=== PATIENT | male | born 1940 | race Caucasian/White ===

== ENCOUNTER 2019-05-06 13:12 | Outpatient (CLI) | payer MEDICARE, SELFPAY ==
--- NOTE | ~2019-05-06 | CT_ITS ---
EXAMINATION: CTA chest DATE: 05/06/2019 14:01 INDICATION: Aortic root dilatation. TECHNIQUE: Computed tomographic angiography (CTA) of the chest was performed with 100 mL Omnipaque-35 0 intravenous contrast. Automated exposure control and iterative reconstruction technique were employ ed. The dose-length product was 588.06 mGy-cm. Maximum intensity projection 3D-reconstructions of the aorta and other arteries were constructed by the technologist on a separate workstation. COMPARISON: Chest CT 05/07/2018 FINDINGS: Calcified bilateral lung nodules and calcified right hilar lymph nodes are consistent with old granulomatous disease. There are widespread peripheral reticular opacities in the lungs with a lo wer lung predominance. No bronchiectasis or honeycombing. No pleural effusion. Cardiomegaly is noted. There are coronary artery calcifications. There is mild right hilar lymphadenopathy, likely reactive . The aorta measures 4.8 cm at the sinuses of Valsalva, 4.0 cm at the sinotubular junction, 4.1 cm in the mid ascending aorta, 3.0 cm at the aortic isthmus, and 3.1 cm in the mid descending aorta. A mary tus bump is noted. There are gallstones in the gallbladder, which is normal in size. There is mild th oracic spondylosis. IMPRESSION: 1. Stable ectasia of ascending aorta. 2. Cardiomegaly. 3. Slightly worsened chronic interstitial lung disease in a pattern of usual interstitial pneumonia ( UIP) versus nonspecific interstitial pneumonia (NSIP). Reviewed, dictated and finalized at location A. CONNECTOR IMPRESSION: 1. Stable ectasia of ascending aorta. 2. Cardiomegaly. 3. Slightly worsened chronic interstitial lung disease in a pattern of usual in terstitial pneumonia (UIP) versus nonspecific interstitial pneumonia (NSIP).
[2019-05-06 13:52] LABS: Estimated Glomerular Filt Rate 45
== END 2019-05-06 13:13 | disposition home or self-care (01) ==
PROVIDERS: PCP Family Medicine; Visit Provider Internal Medicine Cardiovascular Disease
DX: I77.810 Thoracic aortic ectasia (principal); I71.2 Thoracic aortic aneurysm, without rupture; I35.1 Nonrheumatic aortic (valve) insufficiency; I51.7 Cardiomegaly; J84.9 Interstitial pulmonary disease, unspecified
CPT/HCPCS: 36415; 71275; Q9967

== ENCOUNTER → 2020-06-03 05:04 | Outpatient (CLI) | payer MEDICARE, SELFPAY ==
[2020-06-03 19:22] LABS: SARS-CoV-2 RNA PCR Negative
== END ==
PROVIDERS: PCP Family Medicine; Visit Provider Internal Medicine Cardiovascular Disease
DX: Z01.812 Encounter for preprocedural laboratory examination (principal); Z20.822 Contact with and (suspected) exposure to COVID-19
CPT/HCPCS: C9803; U0003; U0005

== ENCOUNTER 2020-10-13 10:47 | Outpatient (CLI) | payer MEDICARE, SELFPAY ==
[2020-10-13] VITALS (7 sets, daily range): BP systolic 126–187; BP diastolic 61–73; PULSE 52–67; RESP 14–20; TEMP 36.3; O2SAT 96–99; BMI 29.9
--- NOTE | 2020-10-13 12:35 | WPDHPUPDATE1 ---
History and Physical Update Update Date/Time: 10/13/20 12:35 History and Physical has been reviewed, including an updated exam of the patient. There are NO changes in the patient's condition. Risks, benefits, and alternatives have been discussed and questions answered. Patient agrees to proceed with procedure.
--- NOTE | 2020-10-13 12:35 | WPDTEECHO ---
[facility] TransEsophageal Echocardiogram Date of procedure: 10/13/20 Procedure Type: Transesophageal echocardiogram Diagnosis: Severe aortic regurgitation, shortness of breath Indications: Severe aortic regurgitation, shortness of breath Image Quality: Acceptable Findings: Brief history present illness: Patient is a pleasant 80-year-old male with a past medical history significant for TYRA on CPAP, CAD status post NSTEMI with 9% proximal LAD stenosis status post 3 x 18 mm drug-eluting stent 2012, ascending aortic aneurysm with aortic regurgitation with worsening shortness of breath decreased activity tolerance with extensive discussions with regarding my recommendation for transesophageal echocardiogram to reassess severity of aortic regurgitation and my recommendations for referral to cardiothoracic surgery as appropriate. With a history of referred for transesophageal echocardiogram for further evaluation for . Procedure in detail: After verbal and written informed consent was obtained the patient risks, benefits, and alternatives explained in detail the patient agreed to proceed with the plan of care as outlined above. The patient was evaluated at bedside in the gastroenterology procedure room. The posterior oropharynx, neck, and jaw angle all within normal limits on examination. Lungs were clear to auscultation. See pre-sedation note for further details The patient was then placed in the appropriate 30 to 45 degree angle supine position at a slight left lateral decubitus position. Patient was monitored throughout the study with telemetry, oxygen saturation, end-tidal CO2 monitoring, blood pressure, heart rate, and respirations. After adequate sedation administered by Anesthesiology was achieved and the oral bite block placed, moderate sedation was administered. After confirmation of adequate moderate sedation, the transesophageal echocardiogram probe was advanced through the oral bite block into the posterior hypopharynx and into the esophagus easily and without complication. Multiple, multiplanar echocardiographic images were obtained in multiple standard re- projections. Pulsed wave, continuous-wave, and color-flow Doppler were utilized in conjunction with this study. At the conclusion of the study, the transesophageal echocardiogram probe was removed easily and without complication. The patient tolerated the procedure well without difficulty. Patient was in sinus rhythm throughout the study. Moderate Sedation/Anesthesia administration: Patient reports no prior problems with sedation/anesthesia. Please see Anesthesiology documentation for details and protocol. There were no other issues or complications and patient tolerated the procedure well. See post-anesthesia documentation. FINDINGS: LEFT VENTRICLE: Mild left ventricular enlargement and left ventricular hypertrophy with paradoxical septal wall motion abnormality and ejection fraction approximately 55% mild hypokinesis in setting of severe aortic regurgitation. RIGHT VENTRICLE: Size and systolic function within normal limits. LEFT ATRIUM: Mild to moderate enlargement RIGHT ATRIUM: Normal size. INTERATRIAL SEPTUM: Interatrial septum is anatomically normal without evidence of shunt with color-flow Doppler. MITRAL VALVE: Mitral valve is anatomically normal with preserved leaflet excursion and mild regurgitation. Mild mitral annular calcification AORTIC VALVE: The aortic valve was an anatomically normal 3 leaflet structure with normal leaflet excursion with severe regurgitation. TRICUSPID VALVE: The tricuspid valve is anatomically normal with normal leaflet excursion with mild regurgitation identified. No mobile elements identified. PULMONIC VALVE: Pulmonic valve was not well visualized, however, trivial regurgitation was identified. LEFT ATRIAL APPENDAGE: Not well visualized, however, visualized portions appear anatomically normal structure without thrombus. Left atri
== END 2020-10-13 15:40 | disposition home or self-care (01) ==
LOC: ANHCARD 10:53
PROVIDERS: PCP Family Medicine; Visit Provider Internal Medicine Cardiovascular Disease
PROC: (CPT 93312; principal; 2020-10-13 12:00)
DX: I35.1 Nonrheumatic aortic (valve) insufficiency (principal); R06.02 Shortness of breath
CPT/HCPCS: 93312; 93320; 93325; J2001; J2704; J7030

== ENCOUNTER 2021-10-24 01:19 | Day surgery (SDC) | payer MEDICARE, SELFPAY ==
[2021-10-20 16:45] VITALS: BMI 31.0
[2021-10-24] VITALS (9 sets, daily range): BP systolic 116–196; BP diastolic 49–68; PULSE 46–64; RESP 12–19; TEMP 36.3–37.2; O2SAT 96–99; BMI 30.8
--- NOTE | 2021-10-24 09:39 | WPDMODSED ---
Moderate Sedation Note-Pt Data Patient Data Allergies Allergy/AdvReac Type Severity Reaction Status Date / Time atorvastatin Allergy Unknown dizzy and Verified 10/24/21 08:45 cough famotidine Allergy Unknown vision Verified 10/24/21 08:45 problems lisinopril Allergy Unknown Unknown Verified 10/24/21 08:45 metoprolol Allergy Unknown Dizziness Verified 10/24/21 08:45 Penicillins Allergy Unknown Skin Verified 10/24/21 08:45 Reaction tamsulosin Allergy Unknown Pt does Verified 10/24/21 08:45 not remember reaction Ieuinwl-BFH-DhS Reductase Allergy Unknown Verified 10/24/21 08:46 Inhibitor Home Medications Medication Instructions Recorded Confirmed Type aspirin 81 mg tablet,delayed 81 mg PO DAILY 04/22/19 10/24/21 History release losartan 25 mg tablet 25 mg PO DAILY 10/13/20 10/24/21 History nitroglycerin 0.4 mg sublingual 0.4 mg sublingual Q5M PRN chest 01/18/21 10/24/21 Rx tablet (Nitrostat) pain #30 tabs ezetimibe 10 mg tablet See Rx Instructions .Route 02/02/21 10/24/21 Rx .COMPLEX #90 tabs clopidogrel 75 mg tablet See Rx Instructions .Route 09/11/21 10/24/21 Rx .COMPLEX #90 tabs Current Medications: Active Medications Sodium Chloride (Normal Saline Iv) 500 mls @ 100 mls/hr IV CONT .Q5H ARLENE Sedation/Anesthesia: No previous sedation/anesthesia problems (including family history). [facility] Past Medical History Medical History CAD (coronary artery disease) Essential (primary) hypertension History of heart attack Hypothyroidism (acquired) Mixed hyperlipidemia Nonrheumatic aortic (valve) insufficiency 8-21 trans esophageal echo severe Obstructive sleep apnea (adult) (pediatric) Surgical History Surgical History H/O hernia repair H/O prostatectomy History of appendectomy Family History Family History Father Diabetes mellitus Acute myocardial infarction, Onset Age: 83 Mother Family history of lymphoma Social History Social History Smoking status: Never smoker Alcohol intake: never Substance use type: does not use Living arrangements: alone Spiritual care concerns: No Mod Sed Physical Exam Physical Exam Pre Procedural Exam: Normal: Airway Hours since solid foods: 10 Hours since liquid intake: 10 Mallampati Classification: class II Internal Medicine - PN: Obj Da Vital Signs Vital Signs: Vital Signs - 24 hr 10/24/21 08:47 Temperature 37.2 C Pulse Rate 59 L Respiratory Rate 16 Blood Pressure 186/55 H Pulse Oximetry 98 Oxygen Delivery Room Air Meds/Results Medications: Active Medications Generic Name Dose Route Start Last Admin Trade Name Freq PRN Reason Stop Dose Admin Sodium Chloride 500 mls @ 100 mls/hr 10/24/21 08:30 Normal Saline Iv IV CONT .Q5H ARLENE ASA Classification/Sedation ASA Classification/Sedation ASA Class: IV Emergent: No Risks: Risks, benefits and alternatives explained and patient/family accepted plan for sedation. Patient re-evaluated immediately prior to sedation.
--- NOTE | 2021-10-24 09:42 | PM.IMHP ---
H&P: HPI History of Present Illness Date/Time: 10/24/21 09:42 Chief Complaint: fatigue Narrative: 81-year-old male with CAD, history of Non ST-elevation [place] status post PCI/stenting of LAD at outside hospital, valvular heart disease -aortic regurgitation, CHF with reduced ejection fraction, hypertension, CKD, TYRA. Patient has been referred by Dr. Estes for right and left heart catheterization prior to aortic valve surgery. echocardiogram from 10/13/2021 reportedly showed moderate LVH, moderate LV enlargement, ejection fraction about 45%; mild MR, moderate severe aortic regurgitation, mildly dilated ascending aorta. CT angiogram from 10/05/2021 reportedly showed sinus of Valsalva 4.6x4.6x 4.6 cm, ST junction 3.8 x 3.9 cm, mid descending aorta 2.8 x 2.8 cm. [facility] Past Medical History Medical History CAD (coronary artery disease) Essential (primary) hypertension History of heart attack Hypothyroidism (acquired) Mixed hyperlipidemia Nonrheumatic aortic (valve) insufficiency 8-21 trans esophageal echo severe Obstructive sleep apnea (adult) (pediatric) Surgical History Surgical History H/O hernia repair H/O prostatectomy History of appendectomy Family History Family History Father Diabetes mellitus Acute myocardial infarction, Onset Age: 83 Mother Family history of lymphoma Social History Social History Smoking status: Never smoker Alcohol intake: never Substance use type: does not use Living arrangements: alone Spiritual care concerns: No Meds Home Medications and Allergies Home Medications Medication Instructions Recorded Confirmed Type aspirin 81 mg tablet,delayed 81 mg PO DAILY 04/22/19 10/24/21 History release losartan 25 mg tablet 25 mg PO DAILY 10/13/20 10/24/21 History nitroglycerin 0.4 mg sublingual 0.4 mg sublingual Q5M PRN chest 01/18/21 10/24/21 Rx tablet (Nitrostat) pain #30 tabs ezetimibe 10 mg tablet See Rx Instructions .Route 02/02/21 10/24/21 Rx .COMPLEX #90 tabs clopidogrel 75 mg tablet See Rx Instructions .Route 09/11/21 10/24/21 Rx .COMPLEX #90 tabs Allergies Allergy/AdvReac Type Severity Reaction Status Date / Time atorvastatin Allergy Unknown dizzy and Verified 10/24/21 08:45 cough famotidine Allergy Unknown vision Verified 10/24/21 08:45 problems lisinopril Allergy Unknown Unknown Verified 10/24/21 08:45 metoprolol Allergy Unknown Dizziness Verified 10/24/21 08:45 Penicillins Allergy Unknown Skin Verified 10/24/21 08:45 Reaction tamsulosin Allergy Unknown Pt does Verified 10/24/21 08:45 not remember reaction Pfzistf-CQG-CjB Reductase Allergy Unknown Verified 10/24/21 08:46 Inhibitor Vital Signs Vital Signs - 24 hr 10/24/21 08:47 Temperature 37.2 C Pulse Rate 59 L Respiratory Rate 16 Blood Pressure 186/55 H Pulse Oximetry 98 Oxygen Delivery Room Air Exam Narrative: PHYSICAL EXAMINATION: GENERAL: Alert, oriented, no acute distress MENTAL STATUS: Depressed mood EYES: Extraocular movements intact, no pallor EARS: External ears appear normal, hearing grossly normal NOSE: Normal and patent, no discharge MOUTH: Mucous membranes moist, tongue normal NECK: Supple, no JVD CHEST: clear to auscultation HEART: Normal rate, regular rhythm, diastolic murmur ABDOMEN: Soft, nontender NEUROLOGICAL: Alert, oriented, normal speech, no gross motor deficits MUSCULOSKELETAL: No major deformity, no amputation EXTREMITIES: No pedal edema, no clubbing, no cyanosis SKIN: no rash on the exposed area, no cyanosis PSYCHIATRIC: depressed mood Assessment and Plan Assessment and plan (1) Aortic regurgitation: Code(s): I35.1 - Nonrheumatic aortic (valve) ins
--- NOTE | 2021-10-24 11:11 | WPDCARDPROC ---
Cardiac Cath Procedure Note Date of procedure:: 10/24/21 Performing physician:: Samuel Medina MD Procedure Procedure performed:: RIGHT AND LEFT HEART CATHETERIZATION AND CORONARY ANGIOGRAM REPORT DATE OF PROCEDURE: 10/24/2021 INDICATION FOR PROCEDURE: CAD, aortic regurgitation, aortic aneurysm -preop right and left heart catheterization BRIEF CLINICAL HISTORY: 81-year-old male with CAD, history of? Non ST-elevation [place] status post PCI/stenting of LAD /diagonal branch at outside hospital, valvular heart disease -aortic regurgitation, CHF with reduced ejection fraction, hypertension, CKD, TYRA. ?Patient has been referred by Dr. Estes for right and left heart catheterization prior to aortic valve surgery. echocardiogram from 10/13/2021 reportedly showed moderate LVH, moderate LV enlargement, ejection fraction about 45%; mild MR, moderate severe aortic regurgitation, mildly dilated ascending aorta.? CT angiogram from 10/05/2021 reportedly showed sinus of Valsalva 4.6x4.6x 4.6 cm, ST junction 3.8 x 3.9 cm, mid descending aorta 2.8 x 2.8 cm. Benefits and risks of the procedure were discussed with the patient in depth, and informed consent was obtained prior to the procedure. Risks of the procedure include but are not limited to vascular complications including groin hematoma, retroperitoneal bleed, vessel perforation; periprocedural MT, cardiac arrhythmias, stroke, contrast induced nephropathy, cardiac arrhythmias, pulmonary hemorrhage and . After discussing all the benefits, risks and alternatives, patient was willing to proceed with the procedure. PROCEDURES PERFORMED: 1. Left heart catheterization- Selective left and right coronary angiogram; LV pressure measurement and hemodynamic assessment 2. Right heart catheterization with hemodynamic assessment 3. Deployment of Mynx hemostatic device 4. Moderate sedation-CPT code 94453 MODERATE SEDATION: Midazolam 1 mg; fentanyl 25 mcg; Start time 1011 , Stop time 1050 ; Total [id number] time 39 minutes; Kayla Sol RN was trained observer for moderate sedation. ACCESS SITE: Right common femoral artery and vein PROCEDURE NOTE: After obtaining informed consent, patient was brought to catheterization lab and prepped and draped in a usual sterile manner. After local anesthesia with lidocaine, right common femoral artery access was taken with micropuncture needle followed by insertion of a 5 [place] sheath. Right common femoral venous access was taken with micropuncture needle followed by insertion of a 7 [place] sheath. Right heart catheterization was performed using C [place] catheter. Pressures were measured in the right atrium, right ventricle, pulmonary artery, pulmonary capillary. O2 saturations were taken from the femoral artery, right atrium, right ventricle, pulmonary artery. Cardiac output was measured using Vipin's method. After completion of right heart catheterization, attention was shifted to the left heart catheterization. Selective left and right coronary angiogram was performed using 5 [place] JL5 and JR4 catheters respectively. Orthogonal views were taken. Next, a 5 [place] pigtail catheter was advanced in the LV cavity and was flushed with normal saline. LV pressure measurement was performed. LVgram was not performed due to patient's renal insufficiency. The gradient across the aortic valve was measured on the pullback of the catheter. Mynxl vascular closure device was deployed with good hemostasis. Manual pressure was used for local hemostasis of femoral venous access site. Patient tolerated procedure well without any immediate procedure related complications. FINDINGS: LEFT HEART CATHETERIZATION: LEFT MAIN CORONARY: the left main coronary artery is a medium to large caliber vessel without significant focal stenosis. LEFT ANTERIOR DESCENDING ARTERY: The LAD is a medium to large caliber vessel in the proximal segment with stent in the lower part of the proxim
--- NOTE | 2021-10-24 14:23 | SUR.PHASEII ---
After discussing discharge topics I educated patient that it is strongly urged to have a responsible adult stay with him for 24 hours post procedure. He states he has no family. He will have his ride come up to the floor to be educated on discharge instructions. I also called case management due to his insurance questions and to discuss possible needed resources in the future.
--- NOTE | 2021-10-24 14:28 | SUR.PHASEII ---
Case management Neftaly is at bedside talking with patient.
--- NOTE | 2021-10-24 14:37 | SUR.PHASEII ---
Called to get patient a 1 week follow up with [facility] spoke right and left heart cath. I was told by LARRY Farias that they do not follow up with the patient in 1 week post cath to check groin site and they typically follow up in 1 month and that he can keep his appt that is already scheduled and that he should follow up with Dr. Ellis as recommended.
--- NOTE | 2021-10-24 15:41 | SUR.PHASEII ---
Patient was escorted to private vehicle via wheelchair. His neighbor Matthew who has had a heart cath and is familiar with recovery. He will be checking in on patient and it was advised to have a responsible adult stay with patient at all times for 24 hours for safety. Patient was given mynx vascular closure card and instructions. Patient was stable and voiced no complaints. He ambulated in the room and to wheelchair without difficulty. Patient was instructed on activity/driving restrictions, no alcohol/meds that can cause drowsiness, continue home medications, reportable s/s of infection/bleeding, heart attack/stroke when to call 911 or medical provider, when to follow up and to call Dr. Ellis's office (CT surgery) to schedule follow up.
--- NOTE | 2021-10-24 15:48 | SUR.PHASEII ---
Dr. Medina was made aware of patient not having family and his neighbor who does not live with him was his plan for discharge laborer hide house and was ok with proceeding with discharge and placed order. Patient was escorted from [facility] to private vehicle via wheelchair. His neighbor Matthew who was his truss driver helper was educated on discharge instructions. Pt's neighbor reports he has had a cardiac cath and is familiar with reportable s/s and recovery. He was advised that a responsible adult should stay with patient for 24 hours in case patient should need help or have bleeding from cath site. They verbalized understanding. He was stable and had no complaints at discharge. he ambulated in room to hallway wheelchair without difficulty. He was educated on reportable s/s, s/s of infection, hematoma, bleeding, heart attack and stroke. He was given mynx closure device card and discharge instructions. He was educated on activity restrictions/driving restrictions, alcohol restrictions and no meds that can cause drowsiness, continue home meds, IV site and right femoral arterial and venous puncture site dressing/wound care. Keep follow up for 11/29/[address] Estes (sooner if problems) and to call CT surgery Dr. Ellis's office tomorrow 10/25/21 to make a follow up appointment. Patient and neighbor both verbalized understanding of discharge instructions and had no further questions.
== END 2021-10-24 15:30 | disposition home or self-care (01) ==
PROVIDERS: PCP Family Medicine; Visit Provider Internal Medicine Cardiovascular Disease
PROC: 4A023N8 Measurement of Cardiac Sampling and Pressure, Bilateral, Percutaneous Approach (ICD-10-PCS; CPT 93453; principal; 2021-10-24 10:00)
DX: I25.10 Atherosclerotic heart disease of native coronary artery without angina pectoris (principal); I35.1 Nonrheumatic aortic (valve) insufficiency; I71.9 Aortic aneurysm of unspecified site, without rupture; N18.9 Chronic kidney disease, unspecified; Z95.5 Presence of coronary angioplasty implant and graft; G47.33 Obstructive sleep apnea (adult) (pediatric); I13.0 Hypertensive heart and chronic kidney disease with heart failure and stage 1 through stage 4 chronic kidney disease, or unspecified chronic kidney disease; I50.9 Heart failure, unspecified; Z79.82 Long term (current) use of aspirin; E03.9 Hypothyroidism, unspecified; E78.2 Mixed hyperlipidemia; I25.2 Old myocardial infarction; I10 Essential (primary) hypertension
CPT/HCPCS: 93460; C1760; C1887; C1894; G0269; J1644; J2250; J3010; J7040

== ENCOUNTER → 2022-01-02 13:21 | Outpatient (CLI) | payer MEDICARE, SELFPAY ==
--- NOTE | ~2022-01-02 | XR_ITS ---
XR lumbar spine min 4V DATE: 01/02/2022 13:44 INDICATION: Low back pain TECHNIQUE: AP, lateral, coned lateral lumbosacral and bilateral oblique views COMPARISON: 11/21/2016 MRI lumbar spine 10/22/2016 lumbar spine FINDINGS: There is diffuse osteopenia. There is severe degenerative disc disease at L1-2 and L2-3 with prominent bridging osteophytes especi ally at L2-3. There is moderately prominent degenerative disc disease at L3-4 with prominent left bridging osteophy te. No fracture or bone destruction, spondylolysis or spondylolisthesis. The sacroiliac joints are intact. There is little interval change since 10/22/2016. IMPRESSION: Osteopenia Extensive degenerative changes with interval change since 10/22/2016 Reviewed, dictated and finalized at location A.
== END ==
PROVIDERS: PCP Family Medicine; Visit Provider Family Medicine
DX: M85.88 Other specified disorders of bone density and structure, other site (principal); M51.36 Other intervertebral disc degeneration, lumbar region
CPT/HCPCS: 72110

== ENCOUNTER 2022-04-26 13:30 | Outpatient (RCR) | payer MEDICARE, SELFPAY ==
[2022-02-02 11:45] VITALS: PULSE 68
== END 2022-04-26 18:00 | disposition home or self-care (01) ==
LOC: ANHCPREHAB 13:30
PROVIDERS: PCP Family Medicine; Visit Provider Internal Medicine Cardiovascular Disease
DX: Z95.2 Presence of prosthetic heart valve (principal)
CPT/HCPCS: 93798

== ENCOUNTER 2022-06-07 14:41 | Emergency (ER) | payer MEDICARE, SELFPAY ==
--- NOTE | ~2022-06-07 | XR_ITS ---
EXAMINATION: [id number] DATE: 06/07/2022 15:09 INDICATION: Right rib pain. Fall. TECHNIQUE: A frontal view of the chest and 2 views on 3 radiographs of the right ribs were obtained. COMPARISON: Chest 2 views 11/19/2014 FINDINGS: There is mild atelectasis versus scarring in the lower lung zones. Calcified bilateral lung nodules are consistent with old granulomatous disease. No pleural effusion or pneumothorax. Cardiome taty is noted. There are changes of median sternotomy. There are old healed fractures of right fifth- seventh ribs. IMPRESSION: 1. No acute rib fracture. 2. Mild atelectasis versus scarring in the lower lung zones. 3. Cardiomegaly. Reviewed, dictated and finalized at location A.
--- NOTE | 2022-06-07 14:52 | ED.GENADULT ---
HPI - General Adult General Chief complaint: Unspecified Stated complaint: rt side rib pain, shortness of breath Time Seen by Provider: 06/07/22 14:52 Source: patient, RN notes reviewed and old records reviewed Mode of arrival: ambulatory Limitations: no limitations History of Present Illness HPI narrative: 82 year old male who presents to [facility] care with complaints of right sided rib pain with some shortness of breath which started about one week ago when he hit the right side of his chest region against the tailgate of his truck. Patient reports that he had a fractured rib in his 30's and it feels like it did then. Patient reports that he has taken some aspirin for his discomfort and he states that it hurt some to breath deep and feel somewhat short of breath. Patient has no tachypnea or any accessory muscle use noted with breathing. MD complaint: right sided chest discomfort Onset (ago): week(s) (1) Location: chest (right rib area) Severity scale (1-10): 8 Quality: aching Treatments prior to arrival: aspirin Related Data Home Medications Medication Instructions Recorded Confirmed aspirin 81 mg tablet,delayed 81 mg PO DAILY 04/22/19 04/09/22 release Allergies Allergy/AdvReac Type Severity Reaction Status Date / Time atorvastatin Allergy Unknown dizzy and Verified 06/07/22 14:53 cough famotidine Allergy Unknown vision Verified 06/07/22 14:53 problems lisinopril Allergy Unknown Unknown Verified 06/07/22 14:53 metoprolol Allergy Unknown Dizziness Verified 06/07/22 14:53 Penicillins Allergy Unknown Skin Verified 06/07/22 14:53 Reaction tamsulosin Allergy Unknown Pt does Verified 06/07/22 14:53 not remember reaction Gbhelrb-DVN-NaL Reductase Allergy Unknown Verified 06/07/22 14:53 Inhibitor Review of Systems Review of Systems: CONSTITUTIONAL: Denies fever, chills, or sweats. EYES: Denies visual changes, redness, or discharge. ENT: Denies rhinorrhea, congestion, sore throat, or otalgia. CARDIOVASCULAR: Reports right lateral rib area chest pain, no palpitations, or edema. RESPIRATORY: Denies cough, reports some WILLIAM GASTROINTESTINAL: Denies abdominal pain, nausea, vomiting, or diarrhea. GENITOURINARY: Denies dysuria or hematuria. SKIN: Denies rash or itching. MUSCULOSKELETAL: Denies back pain, joint pain, or myalgia. NEUROLOGIC: Denies headache, numbness, or weakness. PSYCHIATRIC: Denies anxiety or depression. All systems reviewed & are unremarkable except as noted in HPI and below PMFSH Past Medical History Medical History (Updated 06/07/22 @ 19:01 by Valencia Collier NP) CAD (coronary artery disease) Essential (primary) hypertension History of heart attack Hypothyroidism (acquired) Mixed hyperlipidemia Nonrheumatic aortic (valve) insufficiency 8-21 trans esophageal echo severe Obstructive sleep apnea (adult) (pediatric) Surgical History Surgical History (Updated 06/07/22 @ 19:01 by Valencia Collier NP) H/O hernia repair H/O prostatectomy History of appendectomy History of open heart surgery states had aortic valve repair Family History Family History Father Diabetes mellitus Acute myocardial infarction, Onset Age: 83 Mother Family history of lymphoma Social History Social History Smoking status: Never smoker Alcohol intake: never Substance use: never Substance use type: does not use Lack of Transportation: No Lack of Food: Never True Current Housing: I Have Housing Concerned About Future Housing: No Difficulty Paying Gas/Electric Bills: No Difficulty Paying for Meds: No Currently Unemployed: No Education: High School Diploma/GED Living arrangements: alone Occupation/Education: retired Gender identity (if verbalized by the patient): Male Spiritual care concerns: No Agree to blood produc
[2022-06-07 14:57] VITALS: BP 147/81; PULSE 71; RESP 16; TEMP 36.6; O2SAT 97
== END 2022-06-07 15:44 | disposition home or self-care (01) ==
PROVIDERS: Emergency Provider Registered Nurse; PCP Family Medicine
DX: S20.211A Contusion of right front wall of thorax, initial encounter (principal); W22.8XXA Striking against or struck by other objects, initial encounter; I25.10 Atherosclerotic heart disease of native coronary artery without angina pectoris; I10 Essential (primary) hypertension; E03.9 Hypothyroidism, unspecified; E78.2 Mixed hyperlipidemia; I25.2 Old myocardial infarction
CPT/HCPCS: 71101; 99213; G0463

== ENCOUNTER 2022-10-02 10:30 | Emergency (ER) | payer MEDICARE, SELFPAY ==
--- NOTE | 2022-10-02 10:38 | ED.SOB ---
HPI - SOB/Dyspnea General Chief Complaint: Shortness of Breath/Dyspnea Stated Complaint: Lower chest; Shortness of breath Time Seen by Provider: 10/02/22 10:50 Source: patient and RN notes reviewed History of Present Illness HPI Narrative: 82-year-old male presents to urgent care with complaints of shortness of breath, epigastric pain, and dizziness for the last 8 days. Patient states he thought it go away but it does not. Patient denies any fevers or chills. Patient does report a slight cough. Patient denies any acute back pain but does report chronic back pain. Patient was diagnosed with contused ribs in June. Denies any vomiting or diarrhea. When asked if patient has chest pain he nods yes and then points to his epigastric region. Related Data Home Medications Medication Instructions Recorded Confirmed aspirin 81 mg tablet,delayed 81 mg PO DAILY 04/22/19 10/02/22 release Allergies Allergy/AdvReac Type Severity Reaction Status Date / Time atorvastatin Allergy Unknown dizzy and Verified 10/02/22 12:04 cough famotidine Allergy Unknown vision Verified 10/02/22 12:04 problems lisinopril Allergy Unknown Unknown Verified 10/02/22 12:04 metoprolol Allergy Unknown Dizziness Verified 10/02/22 12:04 Penicillins Allergy Unknown Skin Verified 10/02/22 12:04 Reaction tamsulosin Allergy Unknown Pt does Verified 10/02/22 12:04 not remember reaction Zakyaos-YSI-YoW Reductase Allergy Unknown Verified 10/02/22 12:04 Inhibitor Review of Systems Review of Systems: CONSTITUTIONAL: Denies fever, chills, or sweats. EYES: Denies visual changes, redness, or discharge. ENT: Denies otalgia and sore throat CARDIOVASCULAR: reports chest pain RESPIRATORY: reports dyspnea GASTROINTESTINAL: reports abdominal pain GENITOURINARY: Denies dysuria or hematuria. SKIN: Denies rash or itching. MUSCULOSKELETAL: Denies back pain, joint pain, or myalgia. NEUROLOGIC: Dizziness Pertinent positives per HPI. [facility] Past Medical History Medical History CAD (coronary artery disease) Essential (primary) hypertension History of heart attack Hypothyroidism (acquired) Mixed hyperlipidemia Nonrheumatic aortic (valve) insufficiency 8-21 trans esophageal echo severe Obstructive sleep apnea (adult) (pediatric) Surgical History Surgical History H/O hernia repair H/O prostatectomy History of appendectomy History of open heart surgery states had aortic valve repair Family History Family History Father Diabetes mellitus Acute myocardial infarction, Onset Age: 83 Mother Family history of lymphoma Social History Social History Smoking status: Never smoker Alcohol intake: never Substance use: never Substance use type: does not use Lack of Transportation: No Lack of Food: Never True Current Housing: I Have Housing Concerned About Future Housing: No Difficulty Paying Gas/Electric Bills: No Difficulty Paying for Meds: No Currently Unemployed: No Education: High School Diploma/GED Living arrangements: alone Occupation/Education: retired Gender identity (if verbalized by the patient): Male Spiritual care concerns: No Agree to blood products: Yes Comments At the time of my signature, I reviewed and agree with the nursing past medical, surgical, social, and family history. There is no relevant family history pertinent to the patient complaint. Exam Narrative: GENERAL: This is a well-nourished, well-developed patient, in no apparent distress. HEAD: normocephalic, atraumatic. EYES: Sclera clear/white. Vision is grossly intact. EARS: External ears normal, auditory canals clear and without drainage. Hearing grossly intact. NOS
[2022-10-02 10:47] VITALS: BP 125/77; PULSE 80; RESP 20; TEMP 36.5; O2SAT 85
--- NOTE | 2022-10-02 10:48 | ECG_ITS ---
Measurements Intervals [place] Rate: 78 P: 82 NH: 274 QRS: -73 QRSD: 162 T: 28 QT: 423 QTc: 485 Interpretive Statements SINUS RHYTHM WITH FIRST DEGREE AV BLOCK RIGHT BUNDLE BRANCH BLOCK [120+ ms QRS DURATION, UPRIGHT V1, 40+ ms S IN I/aVL/V4/V5/V6] LEFT ANTERIOR FASCICULAR BLOCK [QRS AXIS <= -45, QR IN I, RS IN II] NO PREVIOUS ECG AVAILABLE FOR COMPARISON Electronically Signed On 10-02-2022 13:54:18 CDT by Cindy Woody M.D.
[2022-10-02 11:15] VITALS: BP 126/80
== END 2022-10-02 11:15 | disposition short-term general hospital (02) ==
PROVIDERS: Emergency Provider Nurse Practitioner Family; PCP Family Medicine
DX: R06.00 Dyspnea, unspecified (principal); R09.02 Hypoxemia; R42 Dizziness and giddiness; R10.10 Upper abdominal pain, unspecified; I45.10 Unspecified right bundle-branch block; I44.4 Left anterior fascicular block; I25.10 Atherosclerotic heart disease of native coronary artery without angina pectoris; I10 Essential (primary) hypertension; I25.2 Old myocardial infarction; E03.9 Hypothyroidism, unspecified; E78.2 Mixed hyperlipidemia; I35.1 Nonrheumatic aortic (valve) insufficiency; Z79.82 Long term (current) use of aspirin
CPT/HCPCS: 93005; 99215; G0463

== ENCOUNTER 2022-10-02 11:54 | Inpatient (IN) | payer MEDICARE, SELFPAY ==
[2022-10-02] VITALS (43 sets, daily range): BP systolic 111–167; BP diastolic 48–93; PULSE 62–77; RESP 12–27; TEMP 36.1–36.8; O2SAT 93–100
--- NOTE | ~2022-10-02 | XR_ITS ---
Portable chest x-ray Comparison: 10/02/2022 Clinical History: Right pneumothorax Findings: Right-sided chest tube is in place. No visible pneumothorax. There is bibasilar scarring o r atelectasis. There is probable minimal central congestive change. Cardiomediastinal silhouette is stable. Bones and soft tissues are unremarkable. Impression: Right-sided chest tube without visible pneumothorax. Minimal central congestive change and probable bibasilar atelectasis and/or scarring. Correlate for o ther bibasilar pulmonary disease. Reviewed, dictated and finalized at location . Impression: Right-sided chest tube without visible pneumothorax. Minimal central congestive change and probable bibasilar atelectasis and/or sca rring. Correlate for other bibasilar pulmonary disease.
--- NOTE | ~2022-10-02 | XR_ITS ---
EXAMINATION: XR chest 1V portable INDICATION: Chest tube removal TECHNIQUE: Portable AP chest at 1508 hours COMPARISON: 0509 hours FINDINGS: The right-sided chest tube has been removed. No pneumothorax is identified. Patchy bilatera l opacities in the mid and upper lung zones have improved. There is persistent atelectasis of the sinai g bases. The cardiomediastinal silhouette is stable. No pleural effusion identified. IMPRESSION: 1. Right-sided chest tube removal without visible pneumothorax. 2. Stable atelectasis of the lung bases and decreased opacities of the mid and upper lung zones. Reviewed, dictated and finalized at location F.
--- NOTE | ~2022-10-02 | XR_ITS ---
EXAMINATION: XR chest-chest tube insert/pos DATE: 10/02/2022 14:09 INDICATION: Right pneumothorax status post chest tube placement. TECHNIQUE: A single frontal view of the chest was obtained. COMPARISON: Chest 2 views 12:29 PM, chest CT 05/06/2019, chest single view 06/07/2022 FINDINGS: The lung volumes are small. There is a chronic interstitial pattern in the lungs. There are airspace opacities at the lung bases. Calcified pulmonary nodules are consistent with old granulomat ous disease. No pleural effusion or pneumothorax. Cardiomegaly is noted. The brachiocephalic vessels are tortuous. There is a right-sided chest tube in expected position. IMPRESSION: 1. Right-sided chest tube in expected position. No pneumothorax. 2. Small lung volumes with diffuse lung disease with worsening at the lung bases from 06/07/22, likely a combination of atelectasis and chronic interstitial lung disease. 3. Cardiomegaly. Reviewed, dictated and finalized at location A. IMPRESSION: 1. Right-sided chest tube in expected position. No pneumothorax. 2. Small lung volumes with diffuse lung disease with worsening at the lung base s from 06/07/22, likely a combination of atelectasis and chronic interstitial sinai g disease. 3. Cardiomegaly.
--- NOTE | ~2022-10-02 | XR_ITS ---
Portable chest x-ray Comparison: 10/03/2022 Clinical History: Right pneumothorax Findings: Right-sided chest tube in place, without visible pneumothorax. There is right basilar atel ectatic change or scarring. There is mild haziness in the lung bases bilaterally. Cardiomediastinal silhouette is stable. Bones and soft tissues are unremarkable. Impression: Right-sided chest tube without visible pneumothorax. Probable bibasilar atelectatic change, or possibly mild pulmonary edema. Other chronic bibasilar pulm onary disease not excluded. Reviewed, dictated and finalized at location . Impression: Right-sided chest tube without visible pneumothorax. Probable bibasilar atelectatic change, or possibly mild pulmonary edema. Other chronic bibasilar pulmonary disease not excluded.
--- NOTE | ~2022-10-02 | XR_ITS ---
EXAMINATION: XR chest 2V DATE: 10/02/2022 12:35 INDICATION: Right chest pain. Shortness of breath. TECHNIQUE: Frontal and lateral views of the chest were obtained on 3 radiographs. COMPARISON: Chest 2 views 11/19/2014 FINDINGS: There is a large right pneumothorax. Calcified pulmonary nodules are consistent with old gr anulomatous disease. There are airspace opacities with volume loss in right mid and lower lung zones, likely atelectasis. No pleural effusion. The heart size is normal. There are changes of heart valve replacement. IMPRESSION: 1. Large right pneumothorax. I called this result to Dr. Carmichael. Reviewed, dictated and finalized at location A.
--- NOTE | ~2022-10-02 | XR_ITS ---
EXAMINATION: XR chest 2V DATE: 10/06/2022 08:02 INDICATION: Right-sided pneumothorax TECHNIQUE: frontal and lateral views of the chest were obtained. COMPARISON: Chest radiograph dated 10/04/2022 FINDINGS: Improvement in opacities at the bilateral lower lung zones most likely atelectasis although different ial includes pneumonia. A few scattered bilateral calcified pulmonary nodules consistent with old gra nulomatous disease. No pneumothorax or pleural effusion. Arch size is normal. Median sternotomy wires and mediastinal surgical clips are seen, likely from prior coronary artery bypass grafting. IMPRESSION: 1. No pneumothorax. 2. Improvement in opacities in bilateral lower lung zones and favor atelectasis over pneumonia. Reviewed, dictated and finalized at location A.
--- NOTE | 2022-10-02 12:04 | ECG_ITS ---
Measurements Intervals [place] Rate: 69 P: [place]: 0 QRS: -64 QRSD: 168 T: 4 QT: 453 QTc: 485 Interpretive Statements NORMAL SINUS RHYTHM FIRST-DEGREE AV BLOCK RIGHT BUNDLE BRANCH BLOCK [120+ ms QRS DURATION, UPRIGHT V1, 40+ ms S IN I/aVL/V4/V5/V6] LEFT ANTERIOR FASCICULAR BLOCK [QRS AXIS <= -45, QR IN I, RS IN II] COMPARED TO ECG 10/02/2022 10:57:06 NO SIGNIFICANT CHANGES Electronically Signed On 10-02-2022 13:53:40 CDT by Cindy Woody M.D.
[2022-10-02 12:19] LABS: Basophils Absolute Auto 0.1 K/mm3 (0.0-0.1); Basophils Percent Auto 0.7 % (0.2-1.2); Eosinophils Absolute Auto 0.1 K/mm3 (0-0.3); Hematocrit 44.2 % (42.0-52.0); Hemoglobin 14.3 g/dL (14.0-18.0); Immature Granulocyte Absolute 0.02 K/mm3 (0.00-0.031); Immature Granulocyte Percent A 0.3 % (0-0.5); Lymphocytes Absolute Auto 1.05 K/mm3 (0.9-3.2); Lymphocytes Percent Auto 14.7 % (18.3-44.2); Mean Corpuscular HGB Conc 32.4 g/dl (32-36); Mean Corpuscular Hemoglobin 29.4 pg (26-34); Mean Corpuscular Volume 90.8 fl (80-100); Mean Platelet Volume 9.8 fl (7.4-10.4); Monocytes Absolute Auto 0.8 K/mm3 (0.1-0.6); Monocytes Percent Auto 11.3 % (2.6-8.5); Neutrophils Absolute Auto 5.2 K/mm3 (1.3-6.7); Platelet Count Result 167 k/mm3 (150-375); Red Blood Count 4.87 M/mm3 (4.6-6.20); Red Cell Distribution Width 15.1 % (11.5-14.5); White Blood Count 7.2 K/mm3 (4.5-10.0)
[2022-10-02 12:28] LABS: Alanine Aminotransferase 25 U/L (6-50); Albumin Level 4.5 g/dL (3.5-5.1); Alkaline Phosphatase 59 U/L (38-126); Anion Gap 8 mmol/L (8-16); Aspartate Amino Transferase 33 U/L (17-59); Bilirubin,Total 1.3 mg/dL (0.2-1.3); Blood Urea Nitrogen 28 mg/dL (9-20); Calcium 9.4 mg/dL (8.4-10.2); Carbon Dioxide 24 mmol/L (22-30); Chloride 105 mmol/L (98-107); Estimated CRCL calculation 32 ml/min; Estimated Glomerular Filt Rate 39; Glucose 104 mg/dL (65-110); Potassium 4.6 mmol/L (3.4-5.0); Sodium 137 mmol/L (137-145)
[2022-10-02 12:47] LABS: Alveolar/Arterial O2 Gradient 212.5 mmHg; Base Excess ABG -1.1 mEq/l (+/-2.0); Carboxyhemoglobin 1.5 % THb (0-2.0); Fractional Inspired Oxygen 44 %; HCO3 ABG 22.7 mEq/l (22.0-26.0); Methemoglobin ABG 0.4 %THb (0-1.5); Oxygen Content ABG 18.6 %vol (16.0-22.0); Oxygen Saturation ABG 91.9 % (95.0-100.0); Oxyhemoglobin 88.7 % THb (90.0-100.0); PCO2 ABG 35.7 mmHg (35.0-45.0); PO2 ABG 60.5 mmHg (80.0-100.0); PO2 FiO2 Ratio Arterial Blood 1.38 %; Reduced Hemoglobin 9.4 %THb (0-5.0); Total Hemoglobin 14.9 g/dL (12.0-18.0); pH ABG 7.422 (7.350-7.450)
[2022-10-02 12:48] LABS: Device NASAL CANNULA; Modified Allen's Test Pass; Site Drawn RIGHT RADIAL
--- NOTE | 2022-10-02 13:00 | ED.SOB ---
HPI - SOB/Dyspnea General Chief Complaint: Shortness of Breath/Dyspnea Stated Complaint: SOB Time Seen by Provider: 10/02/22 11:57 History of Present Illness HPI Narrative: Patient is an 82-year-old male who presents ER with shortness of breath. Reports has been feeling short of breath for 1 week. He went to an urgent care who sent him here today because he was hypoxic with decreased breath sounds on the right side. Also reports about a month ago he had a fall and struck his arm and chest wall and had some pain in his ribs but had an x-ray that did not show any issues. While doing some yard work last week she became increasingly short of breath. She now has short of breath with exertion. He reports minor cough that is nonproductive. No fevers or chills or sweats. Related Data Home Medications Medication Instructions Recorded Confirmed aspirin 81 mg tablet,delayed 81 mg PO DAILY 04/22/19 10/02/22 release ezetimibe 10 mg tablet 10 mg PO DAILY 10/02/22 10/02/22 Allergies Allergy/AdvReac Type Severity Reaction Status Date / Time atorvastatin Allergy Unknown dizzy and Verified 10/02/22 17:38 cough famotidine Allergy Unknown vision Verified 10/02/22 17:38 problems lisinopril Allergy Unknown Unknown Verified 10/02/22 17:38 metoprolol Allergy Unknown Dizziness Verified 10/02/22 17:38 Penicillins Allergy Unknown Skin Verified 10/02/22 17:38 Reaction tamsulosin Allergy Unknown Pt does Verified 10/02/22 17:38 not remember reaction Yruocax-ZIL-VtI Reductase Allergy Unknown Verified 10/02/22 17:38 Inhibitor Review of Systems Review of Systems: All systems reviewed & are unremarkable except as noted in HPI and below Constitutional: Constitutional: Denies chills, Denies fatigue and Denies fever(s) ENT: Denies nasal congestion and Denies sore throat Cardiovascular: Cardiovascular: Denies chest pain and Denies rapid heart rate Respiratory: Respiratory: Reports cough, Reports dyspnea and Denies wheezing Gastrointestinal: Gastrointestinal: Denies abdominal pain, Denies nausea and Denies vomiting [facility] Past Medical History Medical History CAD (coronary artery disease) Essential (primary) hypertension History of heart attack Hypothyroidism (acquired) Mixed hyperlipidemia Nonrheumatic aortic (valve) insufficiency 8-21 trans esophageal echo severe Obstructive sleep apnea (adult) (pediatric) Surgical History Surgical History H/O hernia repair H/O prostatectomy History of appendectomy History of open heart surgery states had aortic valve repair Family History Family History Father Diabetes mellitus Acute myocardial infarction, Onset Age: 83 Mother Family history of lymphoma Social History Social History Smoking status: Never smoker Alcohol intake: never Substance use: never Substance use type: does not use Lack of Transportation: No Lack of Food: Never True Current Housing: I Have Housing Concerned About Future Housing: No Difficulty Paying Gas/Electric Bills: No Difficulty Paying for Meds: No Currently Unemployed: No Education: Trade/Vocational Certificate Difficulty w/ Childcare or Family Care: No Living arrangements: alone Occupation/Education: retired Gender identity (if verbalized by the patient): Male Spiritual care concerns: No Agree to blood products: Yes Exam Narrative: GENERAL: Well-appearing, well-nourished, and in no acute distress. HEAD: Normocephalic, atraumatic. ENT: Mucous membranes moist. CHEST: Absent breath sounds right side. No respiratory distress. HEART: Regular rate and rhythm. Normal peripheral pulses. ABDOMEN: Soft, nontender, nondistended. EXTREMITIES: Normal r
[2022-10-02] MEDS: fentaNYL CITRATE INJ (*CRX) 100 MCG/2 ML VIAL 25 MCG IV PUSH (13:21)
[2022-10-02] MEDS: MIDAZOLAM HCL (*CRX) 2 MG/2 ML VIAL IV PUSH (13:21)
[2022-10-02] MEDS: LIDO 1%/EPINEPHRINE 1:100,000 20 ML VIAL (13:44)
--- NOTE | 2022-10-02 13:59 | PC.NURSE ---
Procedural pre-sedation began at 1339. Dr Carmichael at bedside. Fentanyl 25 mcg given at 1344 Versed 2 mg given at 1344 Lidocaine with epinephrine given by Dr. Carmichael at 1344 Dr Carmichael tied down chest tube at 1350
--- NOTE | 2022-10-02 16:12 | PM.CNGS ---
Assessment and Plan Assessment and plan (1) Pneumothorax, right: Code(s): J93.9 - Pneumothorax, unspecified Status: Acute Assessment and Plan: I have reviewed the chest x-rays and evaluated the patient. He had evidence of a large right pneumothorax on initial presentation. Chest tube successfully placed in the emergency department a and follow-up chest x-ray shows complete re-expansion of the lung. Patient will be admitted for further treatment of this. Will keep chest tube on suction overnight and then reassess tomorrow morning. Will get follow-up chest x-rays to ensure that lung is remaining fully reinflated. Chest tube will hopefully be able to be removed in the next couple days as long was there is no sign of reaccumulation of pneumothorax. (2) CAD (coronary artery disease): Code(s): I25.10 - Atherosclerotic heart disease of [place] coronary artery without angina pectoris Status: Acute (3) Nonrheumatic aortic (valve) insufficiency: Code(s): I35.1 - Nonrheumatic aortic (valve) insufficiency Status: Acute (4) Obstructive sleep apnea (adult) (pediatric): Code(s): G47.33 - Obstructive sleep apnea (adult) (pediatric) Status: Acute History of Present Illness Consult details Consult date: 10/02/22 Reason for consult: other (Right pneumothorax) Requesting physician: Nahid Carmichael MD Narrative: This is an 82-year-old man who I am asked to see for a spontaneous right pneumothorax. He presented to an urgent care today with shortness of breath and was sent to the emergency department for further evaluation. He was found to have evidence of a large right pneumothorax. The patient reports doing some outdoor lawn care about 1 week ago, but does not report any history of fall or trauma recently. He does have some dementia, so his history is somewhat vague. He feels that the shortness of breath got worse just over the last day or so and that is why he came into the hospital. He denies any prior history of asthma, COPD, or emphysema. He denies any recent smoking history. In the emergency department a chest tube was placed and follow-up x-ray shows the lung re-expanded. He is currently breathing comfortably on 3 L per nasal cannula. Review of Systems Review of Systems: All systems reviewed & are unremarkable except as noted in HPI and below Eyes: Eyes: Denies change in vision ENT: Denies hearing loss, Denies neck pain and Denies sore throat Cardiovascular: Cardiovascular: Denies chest pain and Reports dyspnea Respiratory: Respiratory: Reports as per HPI, Reports cough and Reports dyspnea Gastrointestinal: Gastrointestinal: Denies abdominal pain and Denies vomiting Genitourinary: Genitourinary: Denies hematuria and Denies dysuria Musculoskeletal: Musculoskeletal: Denies arthralgias, Denies joint swelling and Denies neck pain Allergic/Immunologic: Allergic/Immunologic: Denies wheezing PMFSH Past Medical History Medical History CAD (coronary artery disease) Essential (primary) hypertension History of heart attack Hypothyroidism (acquired) Mixed hyperlipidemia Nonrheumatic aortic (valve) insufficiency 8-21 trans esophageal echo severe Obstructive sleep apnea (adult) (pediatric) Surgical History Surgical History H/O hernia repair H/O prostatectomy History of appendectomy History of open heart surgery states had aortic valve repair Family History Family History Father Diabetes mellitus Acute myocardial infarction, Onset Age: 83 Mother Family history of lymphoma Social History Social History Smoking status: Never smoker Alcohol intake: never Substance use: never Substance use type: does not use Lack of Transportation:
--- NOTE | 2022-10-02 17:40 | ADMGEN ---
This patient, Federico Garcia, was admitted to 2 Medical Room 240-01. Patient/family oriented to hospital policies and general routines including ID bracelet, bed and alarms, visiting hours, pain management, procedures, bathroom and other care routines, personal items, smoking policy, room service/diet, and visiting hours. Information on how to activate the Rapid Response Team has been discussed. Patient/Family are encouraged to report perceived risks to care and to ask questions if they do not understand what they are told or what they should do.
[2022-10-02] MEDS: HYDROcodone/acetaminophen (*CRX) 5-325 MG TABLET 1 TAB PO (18:39)
[2022-10-03 05:31] VITALS: BP 146/54; PULSE 50; RESP 18; TEMP 36.7; O2SAT 92
[2022-10-03 08:00] VITALS: O2SAT 92
--- NOTE | 2022-10-03 11:22 | PM.IMHP ---
H&P: HPI History of Present Illness Date/Time: 10/03/22 11:22 Chief Complaint: Shortness of breath for a few weeks, acutely worse day before admission. Narrative: This is an 82-year-old male patient with a history of CAD, aortic valve disease status post aortic repair, CHF, hypertension, CKD and TYRA who presented to an urgent care complaining of shortness of breath was referred to the emergency department where he was diagnosed with large right pneumothorax and had chest tube placed. Patient was admitted by hospitalist service with surgery consult for chest tube management. Patient states that the shortness of breath has been his only complaint. Patient indicates [place] Patient cannot recall all of his medical history except he remembers he had stents placed in his heart before and had surgery for aortic valve and aorta repair. He cannot recall the medications that he takes or why he takes additional medications. History is augmented by prior chart review. Currently patient denies any chest pain or difficulty breathing. He denies nausea or vomiting. He states that he is able to eat or drink but does not like what is being served so he wants to be able to order his own food. Patient states he was having pain in the right side of his chest when he would move his arm but since the change was made with his chest tube (likely removal from suction) he is no longer having that complaint. Review of Systems Review of Systems: All systems reviewed & are unremarkable except as noted in HPI and below PMFSH Past Medical History Medical History Aortic aneurysm, thoracic CAD (coronary artery disease) Diaphragmatic hernia without mention of obstruction or gangrene Essential (primary) hypertension History of heart attack Hypothyroidism (acquired) Malignant neoplasm of prostate Mixed hyperlipidemia Nonrheumatic aortic (valve) insufficiency 8-21 trans esophageal echo severe Obstructive sleep apnea (adult) (pediatric) Surgical History Surgical History H/O hernia repair H/O prostatectomy History of appendectomy History of open heart surgery states had aortic valve repair Family History Family History Father Diabetes mellitus Acute myocardial infarction, Onset Age: 83 Mother Family history of lymphoma Social History Social History Smoking status: Never smoker Alcohol intake: never Substance use: never Substance use type: does not use Lack of Transportation: No Lack of Food: Never True Current Housing: I Have Housing Concerned About Future Housing: No Difficulty Paying Gas/Electric Bills: No Difficulty Paying for Meds: No Currently Unemployed: No Education: Trade/Vocational Certificate Difficulty w/ Childcare or Family Care: No Living arrangements: alone Occupation/Education: retired Gender identity (if verbalized by the patient): Male Spiritual care concerns: No Agree to blood products: Yes Meds Home Medications and Allergies Home Medications Medication Instructions Recorded Confirmed Type aspirin 81 mg tablet,delayed 81 mg PO DAILY 04/22/19 10/02/22 History release ezetimibe 10 mg tablet 10 mg PO DAILY 10/02/22 10/02/22 History Allergies Allergy/AdvReac Type Severity Reaction Status Date / Time atorvastatin Allergy Unknown dizzy and Verified 10/02/22 17:38 cough famotidine Allergy Unknown vision Verified 10/02/22 17:38 problems lisinopril Allergy Unknown Unknown Verified 10/02/22 17:38 metoprolol Allergy Unknown Dizziness Verified 10/02/22 17:38 Penicillins Allergy Unknown Skin Verified 10/02/22 17:38 Reaction tamsulosin Allergy Unknown Pt does Verified
[2022-10-03 11:27] VITALS: O2SAT 93
--- NOTE | 2022-10-03 11:54 | PM.PNGS ---
Progress Note: A&P Assessment and Plan (1) Pneumothorax, right: Code(s): J93.9 - Pneumothorax, unspecified Status: Acute Assessment and Plan: Will keep chest tube to water seal today, possibly remove tomorrow if no air leak and CXR unchanged. Encourage IS Wean O2 as tolerated (2) Obstructive sleep apnea (adult) (pediatric): Code(s): G47.33 - Obstructive sleep apnea (adult) (pediatric) Status: Acute (3) Nonrheumatic aortic (valve) insufficiency: Code(s): I35.1 - Nonrheumatic aortic (valve) insufficiency Status: Resolved Subjective Subjective Date/Time Seen: 10/03/22 11:54 Interval history: Breathing comfortably. Minimal chest pain from the chest tube. Exam Resp: Effort & Inspection: normal respiratory effort Auscultation: clear to auscultation bilaterally Other: Right chest tube in place without air leak, on water seal. Objective Data Vital Signs Vital Signs: Vital Signs - 24 hr 10/02/22 11:57 10/02/22 12:05 10/02/22 12:09 Temperature 36.1 C L Pulse Rate 69 Pulse Rate [Monitor] Respiratory Rate 20 Blood Pressure 167/93 H Blood Pressure [Left Arm] Pulse Oximetry 98 98 100 Oxygen Delivery Non-Rebreather Mask Non-Rebreather Mask Non-Rebreather Mask Oxygen Flow Rate 15 15 15 10/02/22 13:37 10/02/22 13:39 10/02/22 13:54 Temperature Pulse Rate Pulse Rate [Monitor] 72 72 71 Respiratory Rate 23 H 25 H 19 Blood Pressure Blood Pressure [Left Arm] 158/84 H 158/81 H 137/69 Pulse Oximetry 100 100 99 Oxygen Delivery Non-Rebreather Mask Non-Rebreather Mask Non-Rebreather Mask Oxygen Flow Rate 15 15 15 10/02/22 13:44 10/02/22 13:49 10/02/22 13:54 Temperature Pulse Rate Pulse Rate [Monitor] 71 69 68 Respiratory Rate 27 H 19 23 H Blood Pressure Blood Pressure [Left Arm] 162/86 H 162/86 H 149/72 H Pulse Oximetry 100 97 99 Oxygen Delivery Non-Rebreather Mask Non-Rebreather Mask Non-Rebreather Mask Oxygen Flow Rate 15 15 15 10/02/22 14:09 10/02/22 14:24 10/02/22 16:57 Temperature Pulse Rate 67 Pulse Rate [Monitor] 74 73 Respiratory Rate 22 H 20 20 Blood Pressure 160/86 H Blood Pressure [Left Arm] 111/48 L 137/73 Pulse Oximetry 94 93 95 Oxygen Delivery Non-Rebreather Mask Nasal Cannula Oxygen Flow Rate 5 5 10/02/22 12:01 10/02/22 12:02 10/02/22 12:15 Temperature Pulse Rate 68 70 67 Pulse Rate [Monitor] Respiratory Rate 21 H 24 H 25 H Blood Pressure 167/93 H Blood Pressure [Left Arm] Pulse Oximetry 96 96 100 Oxygen Delivery Oxygen Flow Rate 10/02/22 12:34 10/02/22 12:35 10/02/22 12:45 Temperature Pulse Rate 68 69 67 Pulse Rate [Monitor] Respiratory Rate 26 H 24 H 22 H Blood Pressure 148/87 H Blood Pressure [Left Arm] Pulse Oximetry 94 96 93 Oxygen Delivery Oxygen Flow Rate 10/02/22 13:03 10/02/22 13:15 10/02/22 13:48 Temperature Pulse Rate 67 65 70 Pulse Rate [Monitor] Respiratory Rate 21 H 27 H 12 Blood Pressure Blood Pressure [Left Arm] Pulse Oximetry 97 98 99 Oxygen Delivery Oxygen Flow Rate 10/02/22 13:52 10/02/22 13:57 10/02/22 14:02 Temperature Pulse Rate 68 73 75 Pulse Rate [Monitor] Respiratory Rate 22 H 19 26 H Blood Pressure 149/72 H 137/69 140/74 Blood Pressure [Left Arm] Pulse Oximetry 98 99 95 Oxygen Delivery Oxygen Flow Rate 10/02/22 14:03 10/02/22 14:18 10/02/22 14:30 Temperature Pulse Rate 75 73 73 Pulse Rate [Monitor] Respiratory Rate 24 H 23 H 22 H Blood Pressure Blood Pressure [Left Arm] Pulse Oximetry 95 94 95 Oxygen Delivery Oxygen Flow Rate 10/02/22 14:41 10/02/22 14:45 10/02/22 15:02 Temperature Pulse Rate 76 76 74 Pulse Rate [Monitor] Respiratory Rate 23 H 21 H 23 H Blood Pressure 142/72 H Blood Pressure [Left Arm] Pulse Oximetry 94 93 95 Oxygen Delivery Oxygen Flow Rate 10/02/22 15:15 10/02/22 15:33 10/02/22
[2022-10-03] MEDS: SODIUM CHLORIDE 0.9% IV 500 ML 125 ML IV CONT (12:50)
[2022-10-03 14:00] VITALS: BP 158/72; PULSE 53; RESP 18; TEMP 36.4; O2SAT 95
[2022-10-03 18:19] LABS: Appearance Urine Clear (Clear); Bacteria Urine None Seen /hpf; Bilirubin Urine Negative (Negative); Blood Urine 3+ (Negative); Color Urine Yellow (Yellow); Glucose Urine UA Negative (Negative); Ketones Urine Negative (Negative); Leukocyte Esterase Ur Negative LEU/UL (Negative); Nitrate Urine Negative (Negative); Protein Urine 1+ mg/dL (Negative); Specific Grav Ur 1.022 (1.001-1.035); Squamous Epithelial Cell Urine None seen /hpf (Few); WBC Urine 0-5 /hpf
[2022-10-03 18:32] LABS: Add Urine Microscopic? YES
[2022-10-03 19:30] VITALS: BP 158/70; PULSE 58; RESP 18; TEMP 36.7; O2SAT 95
[2022-10-03 21:40] VITALS: O2SAT 94
[2022-10-04] VITALS (9 sets, daily range): BP systolic 123–166; BP diastolic 56–78; PULSE 54–55; RESP 18–20; TEMP 36.4–36.6; O2SAT 91–96
[2022-10-04 05:23] LABS: Hemoglobin 13.5 g/dL (14.0-18.0); Mean Corpuscular HGB Conc 32.1 g/dl (32-36); Mean Corpuscular Hemoglobin 29.4 pg (26-34); Mean Corpuscular Volume 91.5 fl (80-100); Mean Platelet Volume 9.8 fl (7.4-10.4); Platelet Count Result 152 k/mm3 (150-375); Red Blood Count 4.59 M/mm3 (4.6-6.20); Red Cell Distribution Width 14.8 % (11.5-14.5); White Blood Count 6.9 K/mm3 (4.5-10.0)
[2022-10-04 05:35] LABS: Anion Gap 5 mmol/L (8-16); Blood Urea Nitrogen 21 mg/dL (9-20); Calcium 8.5 mg/dL (8.4-10.2); Carbon Dioxide 28 mmol/L (22-30); Chloride 105 mmol/L (98-107); Estimated CRCL calculation 36 ml/min; Estimated Glomerular Filt Rate 45; Glucose 102 mg/dL (65-110); Potassium 4.1 mmol/L (3.4-5.0); Sodium 138 mmol/L (137-145)
[2022-10-04] MEDS: ASPIRIN 81 MG ENTERIC TABLET PO (09:02)
[2022-10-04] MEDS: EZETIMIBE 10 MG TABLET PO (09:02)
--- NOTE | 2022-10-04 09:29 | P.PNIM_ITS ---
Subjective Date/time seen: 10/04/22 09:29 Objective Data Vital Signs Vital Signs: Vital Signs - 24 hr 10/03/22 11:27 10/03/22 14:00 10/03/22 19:30 Temperature 36.4 C 36.7 C Pulse Rate 53 L 58 L Respiratory Rate 18 18 Blood Pressure 158/72 H 158/70 H Pulse Oximetry 93 95 95 Oxygen Delivery Nasal Cannula Oxygen Flow Rate 4 10/03/22 21:40 10/04/22 06:00 Temperature 36.4 C L Pulse Rate 54 L Respiratory Rate 18 Blood Pressure 166/78 H Pulse Oximetry 94 93 Oxygen Delivery Nasal Cannula Oxygen Flow Rate 4 Intake/Output Intake/Output: Intake & Output 10/01/22 10/02/22 10/03/22 10/04/22 23:59 23:59 23:59 23:59 Intake Total 250 1284 100 Output Total 100 1028 438 Balance 150 256 -338 Meds/Results Medications: Active Medications Generic Name Dose Route Start Last Admin Trade Name Freq PRN Reason Stop Dose Admin Acetaminophen 650 mg 10/02/22 14:48 Acetaminophen 325 Mg Tablet PO Q4H PRN Mild Pain (1-3) or Fever Hydrocodone Bitart/Acetaminophen 1 tab 10/02/22 14:48 10/02/22 18:39 Hydrocodone/Acetaminophen (*Crx) 5-325 Mg Tablet PO 1 tab Q4H PRN Administration Pain Rated 4-6 Aspirin 81 mg 10/04/22 09:00 10/04/22 09:02 Aspirin 81 Mg Enteric Tablet PO 81 mg DAILY ARLENE Administration Ezetimibe 10 mg 10/04/22 09:00 10/04/22 09:02 Ezetimibe 10 Mg Tablet PO 10 mg DAILY ARLENE Administration Ondansetron HCl 4 mg 10/02/22 14:48 Ondansetron Inj 4 Mg/2 Ml Vial IV PUSH Q4H PRN Nausea Radiology Results: ITS Impressions Chest X-Ray 10/04/22 05:56 Impression: Right-sided chest tube without visible pneumothorax. Probable bibasilar atelectatic change, or possibly mild pulmonary edema. Other chronic bibasilar pulmonary disease not excluded. Labs Labs: Laboratory Results - last 24 hr 10/03/22 10/04/22 17:59 05:13 WBC 6.9 RBC 4.59 L Hgb 13.5 L Hct 42.0 MCV 91.5 MCH 29.4 MCHC 32.1 RDW 14.8 H Plt Count 152 MPV 9.8 Sodium 138 Potassium 4.1 Chloride 105 Carbon Dioxide 28 Anion Gap 5 L BUN 21 H Creatinine 1.50 H Estim Creat Clear Calc 36 Estimated GFR 45 L Glucose 102 Calcium 8.5 Urine Color Yellow Urine Appearance Clear Urine pH 5.0 Ur Specific [place] 1.022 Urine Protein 1+ H Urine Glucose (UA) Negative Urine Ketones Negative Ur Blood (Man) 3+ H Urine Nitrate Negative Urine Bilirubin Negative Urine Urobilinogen 1.0 Leukocyte Esterase Rfl Negative Urine RBC 11-20 H Urine WBC 0-5 Ur Squamous Epith Cells None seen Urine Bacteria None seen Urine Casts 3-5
--- NOTE | 2022-10-04 10:47 | PM.IMPN ---
Progress Note: A&P Assessment and Plan (1) Pneumothorax, right: Code(s): J93.9 - Pneumothorax, unspecified Status: Acute Assessment and Plan: Right-sided chest tube to water seal for greater than 24 hours. No air leak. No reaccumulation pneumothorax. Surgery plans to remove tube later today. Will work on weaning oxygen to room air and involve physical therapy occupational therapy for discharge planning. (2) Acute kidney injury superimposed on CKD: Code(s): N17.9 - Acute kidney failure, unspecified; N18.9 - Chronic kidney disease, unspecified Status: Acute Assessment and Plan: Patient improving back to apparent baseline creatinine somewhere between 1.4 in 1.5. Today he is 1.5. He is taking adequate oral intake and having good urinary output. (3) Essential (primary) hypertension: Code(s): I10 - Essential (primary) hypertension Status: Acute Assessment and Plan: Blood pressure has been stable somewhat elevated 150s to 160s over 70s. (4) Nonrheumatic aortic (valve) insufficiency: Code(s): I35.1 - Nonrheumatic aortic (valve) insufficiency Status: Resolved Assessment and Plan: Patient had prior aortic bowel repair and aortic aneurysm repair. (5) Hypoxia: Code(s): R09.02 - Hypoxemia Status: Acute Assessment and Plan: Patient on oxygen 4 liters/minute nasal cannula maintaining good saturations. Plans to aggressively wean back to air with mild permissive hypoxia 88% or greater. Time Spent With Patient Time with patient: 25 - 35 minutes Subjective Date/time seen: 10/04/22 10:47 Interval history: 10/03: Chief Complaint: Shortness of breath for a few weeks, acutely worse day before admission. Narrative: This is an 82-year-old male patient with a history of CAD, aortic valve disease status post aortic repair, CHF, hypertension, CKD and TYRA who presented to an urgent care complaining of shortness of breath was referred to the emergency department where he was diagnosed with large right pneumothorax and had chest tube placed.? Patient was admitted by hospitalist service with surgery consult for chest tube management.? Patient states that the shortness of breath has been his only complaint.? Patient indicates that [place] Patient cannot recall all of his medical history except he remembers he had stents placed in his heart before and had surgery for aortic valve and aorta repair.? He cannot recall the medications that he takes or why he takes additional medications.? History is augmented by prior chart review. Currently patient denies any chest pain or difficulty breathing.? He denies nausea or vomiting.? He states that he is able to eat or drink but does not like what is being served so he wants to be able to order his own food.? Patient states he was having pain in the right side of his chest when he would move his arm but since the change was made with his chest tube (likely removal from suction) he is no longer having that complaint. 10/04: Patient denies any chest pain or difficulty breathing at this time. He is seen on nasal cannula oxygenation at 4 liters/minute without dyspnea. Right-sided chest tube still in place with plans for surgery to remove today. Chest x-ray no reaccumulation of pneumothorax at this time. Patient has better appetite and is eating and drinking okay. Mild improvement in renal function noted on morning labs. Plan will be to aggressively titrate oxygenation down as he does not wear supplemental oxygenation home and his discharge plan is to return home with independent living within a few days. Patient denies any acute events overnight. He is concerned about his physical ability to ambulate and carry on tasks of ADLs at home a so PT and OT have been consulted for discharge planning purposes. Review of Systems Review of Systems: All systems reviewed & are unremarkable except as noted
--- NOTE | 2022-10-04 11:23 | PCPTNOTE ---
Attempted PT evaluation. Pt has a chest tube and is unable to safely participate in skilled therapy at this time. Will Follow.
--- NOTE | 2022-10-04 12:53 | PM.PNGS ---
Progress Note: A&P Assessment and Plan (1) Pneumothorax, right: Code(s): J93.9 - Pneumothorax, unspecified Status: Acute Assessment and Plan: Chest tube removed at the bedside today. Will get repeat chest x-ray at 3:00 p.m.. Okay to discharge from surgical standpoint as long as no recurrent pneumothorax seen on follow-up chest x-ray. (2) Obstructive sleep apnea (adult) (pediatric): Code(s): G47.33 - Obstructive sleep apnea (adult) (pediatric) Status: Acute (3) Nonrheumatic aortic (valve) insufficiency: Code(s): I35.1 - Nonrheumatic aortic (valve) insufficiency Status: Resolved Subjective Subjective Date/Time Seen: 10/04/22 12:53 Interval history: Breathing comfortably. Still on supplemental oxygen. Denies chest pains. Exam Resp: Effort & Inspection: normal respiratory effort Auscultation: clear to auscultation bilaterally Other: Right chest tube in place without air leak, on water seal. Objective Data Vital Signs Vital Signs: Vital Signs - 24 hr 10/03/22 14:00 10/03/22 19:30 10/03/22 21:40 Temperature 36.4 C 36.7 C Pulse Rate 53 L 58 L Respiratory Rate 18 18 Blood Pressure 158/72 H 158/70 H Pulse Oximetry 95 95 94 Oxygen Delivery Nasal Cannula Oxygen Flow Rate 4 10/04/22 06:00 10/04/22 09:02 10/04/22 12:10 Temperature 36.4 C L Pulse Rate 54 L Respiratory Rate 18 18 18 Blood Pressure 166/78 H Pulse Oximetry 93 94 94 Oxygen Delivery Nasal Cannula Nasal Cannula Oxygen Flow Rate 4 4 Intake/Output Intake/Output: Intake & Output 10/01/22 10/02/22 10/03/22 10/04/22 23:59 23:59 23:59 23:59 Intake Total 250 1284 340 Output Total 100 1028 538 Balance 150 256 -198 Meds/Results Medications: Active Medications Generic Name Dose Route Start Last Admin Trade Name Freq PRN Reason Stop Dose Admin Acetaminophen 650 mg 10/02/22 14:48 Acetaminophen 325 Mg Tablet PO Q4H PRN Mild Pain (1-3) or Fever Hydrocodone Bitart/Acetaminophen 1 tab 10/02/22 14:48 10/02/22 18:39 Hydrocodone/Acetaminophen (*Crx) 5-325 Mg Tablet PO 1 tab Q4H PRN Administration Pain Rated 4-6 Aspirin 81 mg 10/04/22 09:00 10/04/22 09:02 Aspirin 81 Mg Enteric Tablet PO 81 mg DAILY ARLENE Administration Ezetimibe 10 mg 10/04/22 09:00 10/04/22 09:02 Ezetimibe 10 Mg Tablet PO 10 mg DAILY ARLENE Administration Ondansetron HCl 4 mg 10/02/22 14:48 Ondansetron Inj 4 Mg/2 Ml Vial IV PUSH Q4H PRN Nausea Radiology Results: ITS Impressions Chest X-Ray 10/04/22 05:56 Impression: Right-sided chest tube without visible pneumothorax. Probable bibasilar atelectatic change, or possibly mild pulmonary edema. Other chronic bibasilar pulmonary disease not excluded. Labs Labs: Laboratory Results - last 24 hr 10/03/22 10/04/22 17:59 05:13 WBC 6.9 RBC 4.59 L Hgb 13.5 L Hct 42.0 MCV 91.5 MCH 29.4 MCHC 32.1 RDW 14.8 H Plt Count 152 MPV 9.8 Sodium 138 Potassium 4.1 Chloride 105 Carbon Dioxide 28 Anion Gap 5 L BUN 21 H Creatinine 1.50 H Estim Creat Clear Calc 36 Estimated GFR 45 L Glucose 102 Calcium 8.5 Urine Color Yellow Urine Appearance Clear Urine pH 5.0 Ur Specific [place] 1.022 Urine Protein 1+ H Urine Glucose (UA) Negative Urine Ketones Negative Ur Blood (Man) 3+ H Urine Nitrate Negative Urine Bilirubin Negative Urine Urobilinogen 1.0 Leukocyte Esterase Rfl Negative Urine RBC 11-20 H Urine WBC 0-5 Ur Squamous Epith Cells None seen Urine Bacteria None seen Urine Casts 3-5
[2022-10-05 03:46] VITALS: BP 135/58; PULSE 52; RESP 19; TEMP 36.3; O2SAT 95
[2022-10-05 07:05] LABS: Hematocrit 41.2 % (42.0-52.0); Hemoglobin 13.2 g/dL (14.0-18.0); Mean Corpuscular Hemoglobin 29.1 pg (26-34); Mean Corpuscular Volume 90.7 fl (80-100); Platelet Count Result 144 k/mm3 (150-375); Red Blood Count 4.54 M/mm3 (4.6-6.20); Red Cell Distribution Width 15.1 % (11.5-14.5); White Blood Count 6.5 K/mm3 (4.5-10.0)
[2022-10-05 07:20] LABS: Anion Gap 3 mmol/L (8-16); Blood Urea Nitrogen 20 mg/dL (9-20); Calcium 8.5 mg/dL (8.4-10.2); Carbon Dioxide 27 mmol/L (22-30); Chloride 105 mmol/L (98-107); Estimated CRCL calculation 42 ml/min; Estimated Glomerular Filt Rate 53; Glucose 96 mg/dL (65-110); Potassium 4.1 mmol/L (3.4-5.0); Sodium 135 mmol/L (137-145)
[2022-10-05] MEDS: ASPIRIN 81 MG ENTERIC TABLET PO (09:14)
[2022-10-05] MEDS: EZETIMIBE 10 MG TABLET PO (09:14)
[2022-10-05 09:18] VITALS: PULSE 95; RESP 18; O2SAT 94
--- NOTE | 2022-10-05 11:45 | PM.IMPN ---
Progress Note: A&P Assessment and Plan (1) Pneumothorax, right: Code(s): J93.9 - Pneumothorax, unspecified Status: Acute Assessment and Plan: Chest tube removed. Lung sounds are clear and no dyspnea (2) Acute kidney injury superimposed on CKD: Code(s): N17.9 - Acute kidney failure, unspecified; N18.9 - Chronic kidney disease, unspecified Status: Acute Assessment and Plan: Patient improving back to apparent baseline creatinine somewhere between 1.4 in 1.5. Today he is 1.3. He is taking adequate oral intake and having good urinary output. (3) Essential (primary) hypertension: Code(s): I10 - Essential (primary) hypertension Status: Acute Assessment and Plan: Blood pressure stable. Blood pressure reviewed on 10/05 (4) Nonrheumatic aortic (valve) insufficiency: Code(s): I35.1 - Nonrheumatic aortic (valve) insufficiency Status: Resolved Assessment and Plan: Patient had prior aortic bowel repair and aortic aneurysm repair. (5) Hypoxia: Code(s): R09.02 - Hypoxemia Status: Acute Assessment and Plan: This appears to be resolved. Patient room air 94-95%. Plan Unless patient develops difficulty breathing or significant desaturation we will plan to discharge tomorrow. Time Spent With Patient Time with patient: 25 - 35 minutes Subjective Date/time seen: 10/05/22 11:45 Interval history: 10/03: Chief Complaint: Shortness of breath for a few weeks, acutely worse day before admission. Narrative: This is an 82-year-old male patient with a history of CAD, aortic valve disease status post aortic repair, CHF, hypertension, CKD and TYRA who presented to an urgent care complaining of shortness of breath was referred to the emergency department where he was diagnosed with large right pneumothorax and had chest tube placed.? Patient was admitted by hospitalist service with surgery consult for chest tube management.? Patient states that the shortness of breath has been his only complaint.? Patient indicates that [place] Patient cannot recall all of his medical history except he remembers he had stents placed in his heart before and had surgery for aortic valve and aorta repair.? He cannot recall the medications that he takes or why he takes additional medications.? History is augmented by prior chart review. Currently patient denies any chest pain or difficulty breathing.? He denies nausea or vomiting.? He states that he is able to eat or drink but does not like what is being served so he wants to be able to order his own food.? Patient states he was having pain in the right side of his chest when he would move his arm but since the change was made with his chest tube (likely removal from suction) he is no longer having that complaint. 10/04: Patient denies any chest pain or difficulty breathing at this time. He is seen on nasal cannula oxygenation at 4 liters/minute without dyspnea. Right-sided chest tube still in place with plans for surgery to remove today. Chest x-ray no reaccumulation of pneumothorax at this time. Patient has better appetite and is eating and drinking okay. Mild improvement in renal function noted on morning labs. Plan will be to aggressively titrate oxygenation down as he does not wear supplemental oxygenation home and his discharge plan is to return home with independent living within a few days. Patient denies any acute events overnight. He is concerned about his physical ability to ambulate and carry on tasks of ADLs at home a so PT and OT have been consulted for discharge planning purposes. 10/05: Patient evaluated while he was standing at the sink and shaving. Patient denies any difficulty breathing. He reports that he is feeling better after chest tube is removed. Patient looking forward to discharge home. Patient denies any new symptoms or problems. Oxygen removed and will attempt to remain
[2022-10-05 14:38] VITALS: BP 120/58; PULSE 66; RESP 18; TEMP 36.5; O2SAT 94
[2022-10-05 20:00] VITALS: PULSE 58; RESP 18; O2SAT 93
[2022-10-05 20:56] VITALS: BP 131/62; PULSE 58; RESP 18; TEMP 36.5; O2SAT 93
[2022-10-06 05:48] VITALS: BP 121/58; PULSE 64; RESP 17; TEMP 37.2; O2SAT 96
--- NOTE | 2022-10-06 06:58 | PM.DS ---
DS: Admitting Diagnosis Discharge Date 10/06/2022 Admitting Diagnosis pneumothorax right acute kidney injury superimposed on CKD CAD essential hypertension mixed hyperlipidemia obstructive sleep apnea DS: Discharge Diagnosis Discharge Diagnosis (1) Pneumothorax, right: Code(s): J93.9 - Pneumothorax, unspecified Status: Acute (2) Acute kidney injury superimposed on CKD: Code(s): N17.9 - Acute kidney failure, unspecified; N18.9 - Chronic kidney disease, unspecified Status: Acute (3) Hypoxia: Code(s): R09.02 - Hypoxemia Status: Acute (4) Nonrheumatic aortic (valve) insufficiency: Code(s): I35.1 - Nonrheumatic aortic (valve) insufficiency Status: Resolved (5) Obstructive sleep apnea (adult) (pediatric): Code(s): G47.33 - Obstructive sleep apnea (adult) (pediatric) Status: Acute (6) Mixed hyperlipidemia: Code(s): E78.2 - Mixed hyperlipidemia Status: Acute (7) Essential (primary) hypertension: Code(s): I10 - Essential (primary) hypertension Status: Acute (8) CAD (coronary artery disease): Code(s): I25.10 - Atherosclerotic heart disease of [place] coronary artery without angina pectoris Status: Acute Plan patient to return home with home health. DS: Summary Hospital Course Reason for hospitalization: This is an 82-year-old male patient who was admitted to the hospital due to spontaneous pneumothorax with chest tube placement and hypoxia. Hospital Course: Patient had been experiencing shortness of breath dizziness or significant amount of that acutely worsened on day of admission. In the emergency department patient was noted to large right-sided pneumothorax without known trauma. No significant past lung history. Small bore right-sided chest tube was placed mid axillary line while in the emergency department and patient was admitted to the floor with chest tube on wall suction and nasal cannula oxygen. The following day chest tube was placed to water seal without significant drainage or air leak. Oxygen began to be titrated down and x-ray showed reinflation right lung without reaccumulation pneumothorax. Chest tube was removed on 10/05 in the morning and repeat chest x-ray in the afternoon continue to show improvement in the right lung without reaccumulation of pneumothorax. Patient is able to ambulate with walker the he does not usually need one he used for peace of mind while in the hospital. He rested well overnight. He commented on how remarkable it is that he no longer gets dizzy whenever he stands up or ambulates. This morning repeat chest x-ray again shows no reaccumulation of pneumothorax. He is discharged home with home health set visit his house on 10/08. Patient states he does not believe that he needs home he will allow them to come anyway. Patient's neighbor was called to give him a ride home. Status at Discharge Cognitive/behavioral status at discharge: Awake, alert, oriented pleasant. Functional status at discharge: independent ambulation Overall status at discharge: patient is progressing back to baseline Time Spent with Patient Time attestation: Total time spent providing and/or coordinating discharge services: Time spent: Greater than 30 minutes Exam Narrative: GENERAL: Generally well appearing, alert and oriented, in no apparent distress. He is pleasant and conversant in full sentences. HEENT: Pupils are equally round and briskly reactive to light. Extraocular muscles are intact. Oral mucous membranes are moist without lesions. NECK: The patient has no noted JVD. No adenopathy is appreciated. CHEST/LUNGS: Lungs are clear bilaterally without rhonchi, rales, or wheezes. There is no subcutaneous air appreciated. Chest tube has been removed. Dressing intact. HEART: The patient has a regular rate, No murmurs, rubs, or gallops are appreciated. Distal pulses are 2+. ABDOMEN: The patient?s abdomen is s
[2022-10-06] MEDS: EZETIMIBE 10 MG TABLET PO (09:11)
[2022-10-06] MEDS: ASPIRIN 81 MG ENTERIC TABLET PO (09:15)
== END 2022-10-06 13:22 | disposition home health service (06) | DRG 201 ==
LOC: ANHED 12:41 → ANH2MED 16:34
PROVIDERS: Admitting Provider Chiropractor; Emergency Provider Emergency Medicine; PCP Family Medicine; Visit Provider Nurse Practitioner
DX: J93.9 Pneumothorax, unspecified (principal); I25.10 Atherosclerotic heart disease of native coronary artery without angina pectoris; I35.1 Nonrheumatic aortic (valve) insufficiency; I12.9 Hypertensive chronic kidney disease with stage 1 through stage 4 chronic kidney disease, or unspecified chronic kidney disease; N18.9 Chronic kidney disease, unspecified; E03.9 Hypothyroidism, unspecified; E78.2 Mixed hyperlipidemia; K44.9 Diaphragmatic hernia without obstruction or gangrene; G47.33 Obstructive sleep apnea (adult) (pediatric); I25.2 Old myocardial infarction; Z79.82 Long term (current) use of aspirin; Z85.46 Personal history of malignant neoplasm of prostate
CPT/HCPCS: 32551; 36415; 36600; 71045; 71046; 80048; 80053; 81001; 82375; 82805; 83050; 85025; 85027; 93005; 96374; 96375; 97161; 97165; 97530; 97535; 99215; 99291; A9270; C1729; G0463; J2250; J3010; J7040

== ENCOUNTER 2023-02-06 10:30 | Outpatient (CLI) | payer MEDICARE, SELFPAY ==
--- NOTE | ~2023-02-06 | US_ITS ---
EXAMINATION:US venous doppler LE BI INDICATION:Acute pulmonary embolism TECHNIQUE: Multiple grayscale, color flow and Doppler images of the right and left lower extremity de ep venous systems were obtained and reviewed. COMPARISON:No prior studies for comparison. FINDINGS: The common femoral, superficial femoral and popliteal veins demonstrate normal respiratory variation, augmentation and compressibility. Color flow is also seen within the posterior tibial, pe roneal, greater saphenous and profunda veins. IMPRESSION: 1: No lower extremity deep venous thrombosis. Reviewed, dictated and finalized at location B. [employer]
== END 2023-02-06 10:31 | disposition home or self-care (01) ==
PROVIDERS: PCP Family Medicine
DX: I82.401 Acute embolism and thrombosis of unspecified deep veins of right lower extremity (principal)
CPT/HCPCS: 93970

== ENCOUNTER 2023-07-09 10:01 | Outpatient (CLI) | payer MEDICARE, SELFPAY ==
--- NOTE | ~2023-07-09 | CT_ITS ---
Clinical Indication: Pulmonary embolus CT Scan of the Chest with Contrast: Technique: Contiguous sections were acquired throughout the chest after intravenous administration of 100 cc of Omnipaque 350. Dose reduction technique was used on this scan by utilizing automated expos ure control and iterative reconstruction technique. The dose-length product (DLP) was 649.10 mGy-cm. Findings: There is no evidence of any significant mediastinal, hilar or axillary lymphadenopathy. There is no f illing defect in the pulmonary arterial tree to suggest pulmonary embolus. There is no evidence of ao rtic dissection or aneurysm. There is no evidence of pleural or pericardial effusion. There is mild chronic peripheral interstitial change in the lungs. There is focal right basilar bullo us change. Calcified granuloma noted. Images through the upper abdomen reveal small gallstones. Impression: No evidence of pulmonary embolus, aortic dissection, or aortic aneurysm. Mild chronic peripheral interstitial disease. Reviewed, dictated and finalized at [facility]. Impression: No evidence of pulmonary embolus, aortic dissection, or aortic aneurysm. Mild chronic peripheral interstitial disease.
[2023-07-09 10:48] LABS: Estimated Glomerular Filt Rate 32
== END 2023-07-09 10:02 | disposition home or self-care (01) ==
PROVIDERS: PCP Family Medicine; Visit Provider Internal Medicine Cardiovascular Disease
DX: I26.93 Single subsegmental thrombotic pulmonary embolism without acute cor pulmonale (principal); Z98.890 Other specified postprocedural states
CPT/HCPCS: 71275; Q9967

== ENCOUNTER 2023-10-08 16:27 | Emergency (ER) | payer MEDICARE, SELFPAY ==
--- NOTE | ~2023-10-08 | CT_ITS ---
EXAMINATION: CT diagnostic chest wo con DATE: 10/08/2023 19:21 INDICATION: L rib pain, s/p direct trauma 3 days ago TECHNIQUE: Computed tomography (CT) of the chest was performed with 100 mL Omnipaque-350 intravenous contrast. Automated exposure control and iterative reconstruction technique were employed. The dose-l ength product was 297.16 mGy-cm. COMPARISON: [facility] 07/09/2023. FINDINGS: CHEST: Thoracic aorta: No significant dilation. Mild arch calcification. Lung parenchyma and airways: Right lower lobe bulla. Peripheral and basilar predominant reticulations , likely representing UIP. Granulomas calcification. Thoracic inlet, axillae and chest wall: 2.2 cm left thyroid lobe hypodensity. No axillary lymphadenop athy. Mediastinum: No mass or lymphadenopathy. Heart and pericardium: Cardiomegaly. Aortic valve calcifications No pericardial effusion. Coronary artery calcifications: Moderate. Pleura: No effusion or mass. Upper abdomen: Cholelithiasis, without inflammatory change. Thoracic bones: Nondisplaced acute left 11th posterolateral rib fracture. IMPRESSION: Nondisplaced acute left 11th posterolateral rib fracture. 2.2 cm left thyroid nodule, recommend outpatient thyroid ultrasound for further characterization Reviewed, dictated and finalized at location K.
[2023-10-08 16:28] VITALS: PULSE 63; RESP 18; TEMP 36.2; O2SAT 97
[2023-10-08 16:30] VITALS: BP 204/68; PULSE 61; RESP 16; TEMP 36.6; O2SAT 97
[2023-10-08 18:30] VITALS: BP 197/72; PULSE 55; RESP 17; TEMP 36.7; O2SAT 98
--- NOTE | 2023-10-08 18:48 | ED.GENADULT ---
HPI - General Adult General Chief complaint: Unspecified Stated complaint: rib injury Time Seen by Provider: 10/08/23 18:38 Source: patient Mode of arrival: ambulatory Limitations: no limitations History of Present Illness HPI narrative: This is a 83-year-old male who presents to the ED with chief complaint of left rib pain x3 days. He had initial injury 3 days ago while riding the tractor. States that a tree branch struck him in the left side of his ribs. denies any further sites of pain or injury. Denies any fall, head injury or LOC. Denies central chest pain or shortness of breath. Denies bruising. Related Data Home Medications Medication Instructions Recorded Confirmed aspirin 81 mg tablet,delayed 81 mg PO DAILY 04/22/19 08/15/23 release cyanocobalamin (vitamin B-12) 500 250 mcg PO DAILY 08/15/23 08/15/23 mcg tablet ezetimibe 10 mg tablet (Zetia) 10 mg PO DAILY 08/15/23 08/15/23 triamcinolone acetonide 0.1 % 1 applic topical BID 08/15/23 08/15/23 topical cream Allergies Allergy/AdvReac Type Severity Reaction Status Date / Time atorvastatin Allergy Unknown dizzy and Verified 08/15/23 14:19 cough famotidine Allergy Unknown vision Verified 08/15/23 14:19 problems lisinopril Allergy Unknown Unknown Verified 08/15/23 14:19 metoprolol Allergy Unknown Dizziness Verified 08/15/23 14:19 Penicillins Allergy Unknown Skin Verified 08/15/23 14:19 Reaction tamsulosin Allergy Unknown Pt does Verified 08/15/23 14:19 not remember reaction Kbcpvon-[id number]-LmW Reductase Allergy Unknown Verified 08/15/23 14:19 Inhibitor Review of Systems Review of Systems: All systems as dictated in HPI [facility] Past Medical History Medical History Aortic aneurysm, thoracic CAD (coronary artery disease) Diaphragmatic hernia without mention of obstruction or gangrene Essential (primary) hypertension History of heart attack Hypothyroidism (acquired) Malignant neoplasm of prostate Mixed hyperlipidemia Nonrheumatic aortic (valve) insufficiency 8-21 trans esophageal echo severe Obstructive sleep apnea (adult) (pediatric) Pneumothorax Surgical History Surgical History H/O hernia repair H/O prostatectomy History of appendectomy History of open heart surgery states had aortic valve repair Family History Family History Father Diabetes mellitus Acute myocardial infarction, Onset Age: 83 Mother Family history of lymphoma Social History Social History Smoking status: Never smoker Alcohol intake: never Substance use: never Substance use type: does not use Lack of Transportation: No Lack of Food: Never True Current Housing: I Have Housing Concerned About Future Housing: No Difficulty Paying Gas/Electric Bills: No Difficulty Paying for Meds: No Currently Unemployed: No Education: Trade/Vocational Certificate Difficulty w/ Childcare or Family Care: No Living arrangements: alone Occupation/Education: retired Gender identity (if verbalized by the patient): Male Spiritual care concerns: No Agree to blood products: Yes Exam Narrative: GENERAL: Well-appearing, well-nourished, and in no acute distress. HEAD: Normocephalic, atraumatic. EYES: PERRLA and EOMI. ENT: Nares clear, no rhinorrhea or epistaxis. Mucous membranes moist. Oropharynx without tonsillar hypertrophy exudate or other lesions. NECK: Supple. No adenopathy or masses. CHEST: No respiratory distress. Clear to auscultation. No wheezes rales or rhonchi. Left sided anterolateral chest wall tenderness along the ribs. No bruising. Breath sounds equal bilaterally. HEART: Regular rate and rhythm. No murmur heard. Normal peripheral pulses. ABDOMEN: Soft,
[2023-10-08] MEDS: HYDROcodone/acetaminophen (*CRX) 5-325 MG TABLET 1 TAB PO (19:00)
[2023-10-08 21:15] VITALS: BP 194/66; PULSE 53; RESP 12; TEMP 37; O2SAT 95
== END 2023-10-08 21:32 | disposition home or self-care (01) ==
PROVIDERS: Emergency Provider Physician Assistant; PCP Family Medicine
DX: S22.32XA Fracture of one rib, left side, initial encounter for closed fracture (principal); I25.10 Atherosclerotic heart disease of native coronary artery without angina pectoris; E03.9 Hypothyroidism, unspecified; I25.2 Old myocardial infarction; I10 Essential (primary) hypertension; E78.2 Mixed hyperlipidemia; W22.8XXA Striking against or struck by other objects, initial encounter
CPT/HCPCS: 71250; 99284; A9270